=== PATIENT | female | born 1970 | race Caucasian/White ===

== ENCOUNTER 2025-05-26 12:27 | Emergency (ER) | payer SELFPAY ==
[2025-05-26 12:40] VITALS: BP 126/100
[2025-05-26 13:00] VITALS: BP 116/86
[2025-05-26 13:02] LABS: Hematocrit 38.4 % (37.0-47.0); Hemoglobin 13.2 g/dL (12.0-16.0); Mean Corp Hgb Conc. 34.4 g/dL (33.0-37.0); Mean Corpuscular Volume 97.7 fL (81.0-99.0); Nucleated Red Blood Cells % 0 %; Platelet Count 401 10^3/uL (130-400); Red Cell Dist. Width 14.6 % (11.5-14.5)
[2025-05-26 13:26] LABS: ALT (SGPT) 15 U/L (0-35); AST (SGOT) 25 U/L (14-36); Albumin 4.4 g/dl (3.5-5.0); Alkaline Phosphatase 73 U/L (38-126); Blood Urea Nitrogen 8 mg/dl (7-17); Calcium 9.3 mg/dl (8.4-10.2); Carbon Dioxide 23 mmol/L (22-30); Chloride 113 mmol/L (98-107); Glucose 112 mg/dl (70-99); Potassium 3.8 mmol/L (3.5-5.1); Sodium 148 mmol/L (135-145); Total Protein 6.8 g/dl (6.3-8.2); eGFR > 60.00
[2025-05-26 14:00] VITALS: BP 131/95
[2025-05-26] MEDS: NSS 1000 IV (14:26)
--- NOTE | 2025-05-26 15:25 | ED.GENMED ---
History of Present Illness
General
Chief Complaint: Alcohol Problem
Source: patient and police
Exam Limitations: clinical condition
Time Seen by Provider: 05/26/25 13:20
Nursing documentation reviewed up to this point in time: agreed with
History of Present Illness
History of Present Illness:
pt is a 54 y/o F with unknown medical problems
pt has never been here before
found on the side of the road behind wheel sleeping by police
pt was appearing intoxicated and brought here
pt was combative for staff initially; delirious, not oriented, not really following commands and then has been sleeping
easily arousable
was not able to answer questions about how she got here
still intoxictaed, giggling; inapproriapte emotions
tearful when asked about her wedding ring
we have made multiple attempts to contact family, parents and someone named Olaf
Past History
Past History
ED Past Medical History: Other (unkown)
Review of Systems
Review of Systems
Allergies reviewed?: No
Unable to obtain full review of systems at this time due to: due to acuity
Phy Exam
Physical Exam
Physical Exam:
GENERAL: Alert oriented to person; giggling; responding to internal stimuli; agitated; goofy
HEAD: NCAT
NECK: no midline tenderness, active ROM intact, no paraspinal muscle tenderness;
EYE: pupils equal and reactive, EOMs intact.
ENT: o/p clr, mmm. no hemotympanum
CARDIAC: Regular rate and rhythm, no edema
LUNGS: Clear breath sounds bilaterally, no acute respiratory distress, no wheezes/rales/rhonchi
ABDOMEN: Soft, without focal tenderness, no r/g, no cvat
NEUROLOGICAL: Alert and oriented x 1 person, no focal neuro deficits, CN intact, 5/5 strength, sensation intact; moving all extremities; not hyperreflexic
SKIN: Warm and dry, BRUISE TO R LATERAL HIP full ROM
some older bruises on thigh
MUSCULOSKELETAL: full ROM of the thigh
PSYCH: labile affect
Scores
Withdrawal Assessment of Alcohol
Withdrawal Assessment Completed?: No
Course
Orders/Labs/Results
Orders:
Orders
05/26/25 12:42
EKG [Electrocardiogram (*1)] Urgent
Reason for Study: Tachycardia
EKG- Treatment ONCE
05/26/25 12:55
Alcohol Urgent
CBC/With Diff [Complete Blood Count/With Diff] Urgent
CMP [Comprehensive Metabolic Panel] Urgent
05/26/25 14:02
Drug Screen, Urine [Urine Drug Abuse Screen] Urgent
Date Specimen was Collected: 05/26/25
Time Specimen was Collected: 13:59
05/26/25 14:07
0.9% Sodium Chloride 1000 ml [Nss] 1,000 ml IV BOLUS
05/26/25 14:08
CT Head W/o Iv Contrast Urgent
Comment:
Reason For Exam: delirium; foudn in a car
Abnormal Lab Results
05/26/25 05/26/25
12:55 14:02
RBC 3.93 L 10^6/uL
(4.20-5.40)
MCH 33.6 H pg
(27.0-31.0)
RDW 14.6 H %
(11.5-14.5)
Plt Count 401 H 10^3/uL
(130-400)
Abs Immat Gran (auto) 0.1 H 10^3/uL
(0-0.05)
Absolute Lymphs (auto) 3.5 H 10^3/uL
(1.2-3.4)
Immature Gran % 0.8 H %
(0-0.5)
Sodium 148 H mmol/L
(135-145)
Chloride 113 H mmol/L
(98-107)
Glucose 112 H mg/dl
(70-99)
U Marijuana (THC) Screen Positive H
(Negative)
05/26/25 12:55
05/26/25 12:55
Vital Signs
Initial and Last Documented VS:
Initial Vital Signs
Temp Pulse Resp Pulse Ox
36.9 C 137 24 98
05/26/25 12:31 05/26/25 12:31 05/26/25 12:31 05/26/25 12:31
Last Documented Vital Signs
Temp Pulse Resp BP Pulse Ox
36.9 C 98 24 131/95 95
05/26/25 12:31 05/26/25 15:00 05/26/25 15:00 05/26/25 14:00 05/26/25 15:27
MDM/Problems Addressed
Differential Diagnosis Includes:
anticholinergic syndrome, intoxication, overdose, trauma, psychosis
MDM/Problems Addressed:
54 y/o f
found in a car, responsive to verbal stimuli, drousy, confused
pt is confused, agitated at times, intoxicated
alc level nearly 400
tachycardia resolving with IVF
na 148 likeyl from dehyderation
i spke with pt's dad via her cell phone to obtain info that she does have h/o seiuzre previously; may have been related to alcohol use
but she was sober for a few years until recently
2 years ago and she has been ahving a hard time
he said they cannot come get her.
pt was observed for hours
had ne [facility]
she finally became oriented around 1515 and was able to walk to the bathroom
admitted to drinking alcohol
feles safe going home with friend lawrence whom her father called to come get her
d/c home
*Pulse Oximetry
SaO2: 95
Oxygen Mode of Delivery: Room air
Patient hypoxic: no (98)
*Critical Care Note
Total Time (30-74mins, 75-104mins- exclusive of procedures): Not Applicable
ED Attending Note
-
Portions of this chart may have been created with voice recognition software.� Occasional wrong word or��sound alike� substitutions may have occurred due to the inherent limitations of voice recognition software.
Discharge Plan
Departure
Patient Disposition: Home (Routine Discharge)
Date of Disposition: 05/26/25
Time of Disposition: 17:30
Patient with high blood pressure during this ER visit?: No
Condition: Fair
Covid-19: Not Applicable
Discharge Problem:
Alcohol intoxication
Instructions: Alcohol Use Disorder (DC)
Referrals:
UNKNOWN,NO INTERVIEW [Family Provider]
Activity Restrictions/Additional Instructions:
YOU WERE INTOXICATED
PLEASE DO NOT DRINK AND DRIVE
RETURN FO RANY CONCERNS.
Interventions
Interventions:
*Risk Screen - Suicide Last Done: 05/26/25 12:31
*General Assessment Last Done: 05/26/25 12:31
*Neglect/Abuse Screening Last Done: 05/26/25 12:31
*ED- Fall Risk Assessment Last Done: 05/26/25 12:31
*ED COVID-19 Vaccine History Last Done: 05/26/25 12:31
ED- Neurological Assessment Last Done: 05/26/25 12:47
ED-Psychological Assessment Last Done: 05/26/25 12:47
Discharge Date and Time
Print Language: UPPER SORBIAN
[2025-05-26 17:00] VITALS: BP 135/98
== END 2025-05-26 17:40 | disposition home or self-care (01) ==
LOC: EMR 12:27
PROVIDERS: Physician Assistant; EMERGENCY PHYSICIAN Emergency Medicine
DX: F10.129 Alcohol abuse with intoxication, unspecified (principal); Y90.8 Blood alcohol level of 240 mg/100 ml or more; R00.0 Tachycardia, unspecified
CPT/HCPCS: 99284; 96360; 70450; 80053; 80306; 82077; 85025; 93005

== ENCOUNTER 2025-06-16 16:43 | Emergency (ER) | payer SELFPAY ==
[2025-06-16 16:59] VITALS: BP 143/88
[2025-06-16 17:00] VITALS: BP 132/92
[2025-06-16 17:09] LABS: Hematocrit 41.7 % (37.0-47.0); Hemoglobin 14.8 g/dL (12.0-16.0); Mean Corp Hgb Conc. 35.5 g/dL (33.0-37.0); Mean Corpuscular Volume 95.2 fL (81.0-99.0); Nucleated Red Blood Cells % 0.3 %; Platelet Count 255 10^3/uL (130-400); Red Cell Dist. Width 13.5 % (11.5-14.5)
--- NOTE | 2025-06-16 17:30 | ED.GENMED ---
History of Present Illness
General
Chief Complaint: Seizure
Source: patient
Time Seen by Provider: 06/16/25 17:00
History of Present Illness
History of Present Illness:
The patient is a 22-year-old female who presented to the emergency department after reportedly having a seizure while at a store. The patient denies having a known seizure disorder or a history of epilepsy. It was queried whether the incident was
related to alcohol withdrawal, which the patient denies. She stated she has not consumed alcohol recently and is unsure of her last drink. The patient was previously on depakote sprinkles, which she discontinued a couple of years ago. She reports
feeling well this morning before the episode. Patient states she feels back to baseline at this time. I inquired about her recent hospitalization here at [facility] where her alcohol level was close to 400. Patient has no recollection of this
visit and continue to deny any recent alcohol use. She denies any recent head injury. She denies smoking or recreational drug use.
Past History
Past History
ED Past Medical History: Other (unkown)
Phy Exam
Physical Exam
Physical Exam:
General: Awake, Alert, Oriented X3. Appears tremulous, somewhat anxious
Vitals: Tachycardic
Head: Atraumatic
Eyes: Pupils equal, EOMI
Throat: Airway intact, no exudates
Neck: Trachea midline
Lungs: Clear and equal b/l
Heart: Regular rate, no murmurs
Abd: Soft, Nontender, No pulsatile mass
Neuro: Cranial nerves intact, muscle strength equal bilaterally
Skin: Warm, dry, no rash
Extremities: pulses equal b/l, no edema
Course
Orders/Labs/Results
Orders:
Orders
06/16/25 16:56
EKG [Electrocardiogram (*1)] Urgent
Reason for Study: Chest Pain
06/16/25 16:57
EKG- Treatment ONCE
06/16/25 16:58
Alcohol Urgent
Complete Blood Count/With Diff Urgent
Comprehensive Metabolic Panel Urgent
06/16/25 17:28
diazePAM [Valium Injection] 5 mg IV NOW STA
06/16/25 17:35
CT Head W/o Iv Contrast Urgent
Comment:
Reason For Exam: Seizure presumably new onset
06/16/25 19:00
Dextrose 5%/0.9%Sodchl 1000 ml [D5/0.9% Sodium Chloride] 1,000 ml Thiamine Injection 200 mg FOLic ACID [Folvite] 1 mg IV 1,000 mls/hr
Abnormal Lab Results
06/16/25
16:58
WBC 14.1 H 10^3/uL
(4.8-10.8)
MCH 33.8 H pg
(27.0-31.0)
Abs Immat Gran (auto) 0.1 H 10^3/uL
(0-0.05)
Absolute Neuts (auto) 12.6 H 10^3/uL
(1.4-6.5)
Absolute Lymphs (auto) 0.9 L 10^3/uL
(1.2-3.4)
Neutrophils % 89.0 H %
(42.2-75.2)
Lymphocytes % 6.3 L %
(20.5-51.1)
Sodium 133 L mmol/L
(135-145)
Carbon Dioxide 15 L mmol/L
(22-30)
Glucose 170 H mg/dl
(70-99)
Total Bilirubin 2.0 H mg/dl
(0.2-1.3)
Albumin 5.2 H g/dl
(3.5-5.0)
06/16/25 16:58
06/16/25 16:58
Vital Signs
Initial and Last Documented VS:
Initial Vital Signs
Pulse Resp BP Pulse Ox
130 30 143/88 99
06/16/25 16:59 06/16/25 16:59 06/16/25 16:59 06/16/25 16:59
Last Documented Vital Signs
Pulse Resp BP Pulse Ox
116 15 135/98 100
06/16/25 20:00 06/16/25 20:00 06/16/25 20:00 06/16/25 20:00
MDM/Problems Addressed
Differential Diagnosis Includes:
Alcohol withdrawal seizure, epilepsy, electrolyte abnormality, drug toxicity
MDM/Problems Addressed:
Patient presents after having a seizure. I suspect this is an alcohol withdrawal seizure. I discussed this with the patient and also discussed the fact that she seems to have symptoms of alcohol withdrawal. The patient did not endorse this but
did not contested either. I suggested that we hospitalize her to treat her withdrawal and then she would be in a safe position to go for alcohol rehab. Patient states that she is not in a position to go to rehab now. She would like to be
discharged. I explained that the only other way to alleviate her withdrawal symptoms and to avoid seizure would be to continue drinking which is obviously not the ideal way to treat her symptoms but this is the option that she would prefer. Given
she does not have a desire to go to rehab it does not make sense to hospitalize her she will just start drinking again after discharge.
*Radiology
Radiology exam reviewed: radiology read reviewed
*Pulse Oximetry
SaO2: 98
Oxygen Mode of Delivery: Room air
Patient hypoxic: no
*EKG
Interpreted by ED Provider?: Yes
Interpretation: abnormal
Heart Rate: 130
Rate: tachycardiac
Rhythm: sinus tachycardia
[place]: normal axis
Interval: normal interval
QRS Pattern: normal QRS
Ischemia: no ischemia
*Wheel Installer Interpretation
Rate: tachycardiac
Interpretation: abnormal
Rhythm: sinus tachycardia
*Critical Care Note
Total Time (30-74mins, 75-104mins- exclusive of procedures): Not Applicable
ED Attending Note
-
Portions of this chart may have been created with voice recognition software.� Occasional wrong word or��sound alike� substitutions may have occurred due to the inherent limitations of voice recognition software.
Discharge Plan
Departure
Patient Disposition: Home (Routine Discharge)
Date of Disposition: 06/16/25
Time of Disposition: 20:07
Patient with high blood pressure during this ER visit?: Yes
Condition: Fair
Discharge Problem:
Alcohol withdrawal seizure, Alcohol withdrawal
Referrals:
Luis Nichols DO [Family Provider, Family Practice]
Activity Restrictions/Additional Instructions:
Please reconsider alcohol rehab. Will be happy to help you find placement. Return to the emergency room if that is the case. Unfortunately the only other option to help your symptoms is to continue to drink again this is not what I recommend but
aside from admitting you to treat your withdrawal symptoms and getting into a program that is the only other option
Interventions
Interventions:
*Risk Screen - Suicide Last Done: 06/16/25 16:57
*General Assessment Last Done: 06/16/25 16:57
*Neglect/Abuse Screening Last Done: 06/16/25 16:57
*ED- Fall Risk Assessment Last Done: 06/16/25 16:57
*Nursing Disposition Last Done: 06/16/25 21:02
ED- Cardiac Assessment Last Done: 06/16/25 16:57
ED- Neurological Assessment Last Done: 06/16/25 16:57
ED- Pulmonary Assessment Last Done: 06/16/25 16:57
Discharge Date and Time
Discharge Date/Time: 06/16/25 21:02
Print Language: MAURITANIAN
[2025-06-16 17:31] LABS: ALT (SGPT) 19 U/L (0-35); AST (SGOT) 29 U/L (14-36); Albumin 5.2 g/dl (3.5-5.0); Alkaline Phosphatase 93 U/L (38-126); Blood Urea Nitrogen 17 mg/dl (7-17); Calcium 9.9 mg/dl (8.4-10.2); Carbon Dioxide 15 mmol/L (22-30); Chloride 98 mmol/L (98-107); Estimated Creatinine Clearance 65 ml/min; Glucose 170 mg/dl (70-99); Potassium 4.2 mmol/L (3.5-5.1); Sodium 133 mmol/L (135-145); Total Protein 7.8 g/dl (6.3-8.2); eGFR > 60.00
[2025-06-16] MEDS: VALIUM INJECTION 5 MG IV (18:13)
[2025-06-16] MEDS: THIAMINE INJECTION 1002.2 MG IV ×2 (18:57)
[2025-06-16 20:00] VITALS: BP 135/98
== END 2025-06-16 21:02 | disposition home or self-care (01) ==
LOC: EMR 16:43
PROVIDERS: Emergency Medicine; EMERGENCY PHYSICIAN Emergency Medicine; FAMILY PHYSICIAN Family Medicine
DX: R56.9 Unspecified convulsions (principal); F10.939 Alcohol use, unspecified with withdrawal, unspecified; Y90.9 Presence of alcohol in blood, level not specified
CPT/HCPCS: 99284; 96374; 96361; 70450; 80053; 82077; 85025; 93005